=== PATIENT | male | born 1970 | race Caucasian/White ===

== ENCOUNTER 2021-05-12 11:08 | Inpatient (IN) | payer MEDICARE, MEDICAID ==
[~2021-05-12] VITALS: Ht 167.6 cm; Wt 71.6 kg
[~2021-05-12 11:08] MED LIST: ASPI-1265 PO; BENZ-16 PO; CARSR60C PO; CLON-529 PO; ESOM40CA PO; GABA-338 PO; INSU100V36 SQ; LANTUS SQ; LEVA15HF4 IH; LISI20TA28 PO; ROSU20TA2 PO; SYN0.1T PO
[2021-05-12 12:05] LABS: ALANINE AMINOTRANSFERASE 80 U/L (12-78); ALBUMIN 3.8 G/DL (3.4-5.0); ALKALINE PHOSPHATASE 137 IU/L (46-116); ANION GAP 13 (8-16); ASPARTATE AMINO TRANSFERASE 51 U/L (10-37); BILIRUBIN,TOTAL 0.4 MG/DL (0.1-1.0); BLOOD UREA NITROGEN 21 MG/DL (7-18); BUN/CREATININE RATIO 9.6 (5.4-32.0); CALCIUM 8.8 MG/DL (8.5-10.1); CHLORIDE 104 MMOL/L (99-107); CREATININE 2.18 MG/DL (0.60-1.10); GLUCOSE 248 MG/DL (70-104); POTASSIUM 4.1 MMOL/L (3.5-5.1); SODIUM 139 MMOL/L (135-145); TOTAL CARBON DIOXIDE 22.3 MMOL/L (24-32); TOTAL PROTEIN 7.5 G/DL (6.4-8.2); eGFR 32 ML/MIN
[2021-05-12 12:07] LABS: MAGNESIUM 2.2 MG/DL (1.5-2.4)
[2021-05-12 12:09] LABS: ACETAMINOPHEN < 2.0 UG/ML (10-30)
[2021-05-12 12:25] LABS: BASOPHILS % (AUTO) 0.7 % (0-1); EOSINOPHILS # (AUTO) 0.1 X10'3 (0-0.9); EOSINOPHILS % (AUTO) 2.3 % (0-6); HEMATOCRIT 46.5 % (42.0-52.0); HEMOGLOBIN 15.2 g/dl (14.0-17.9); LYMPHOCYTES # (AUTO) 1.2 X10'3 (1.1-4.8); LYMPHOCYTES % (AUTO) 19.6 % (21-51); MEAN CORPUSCULAR HEMOGLOBIN 27.6 PG (27.0-31.0); MEAN CORPUSCULAR HGB CONC 32.6 g/dL (33.0-36.5); MEAN CORPUSCULAR VOLUME 84.4 FL (78-98); MEAN PLATELET VOLUME 8.5 FL (7.4-10.4); MONOCYTES # (AUTO) 0.4 X10'3 (0-0.9); MONOCYTES % (AUTO) 6.1 % (2-12); NEUTROPHILS # (AUTO) 4.2 X10'3 (1.8-7.7); NEUTROPHILS % (AUTO) 71.3 % (42-75); PLATELET COUNT 278 X10'3 (140-440); RED CELL DISTRIBUTION WIDTH 14.6 % (11.5-14.5); WHITE BLOOD COUNT 5.9 X10'3 (4.5-11.0)
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
--- NOTE | 2021-05-12 14:43 | NUR ---
bs 77, pt given three apple juices. tolerating well.
--- NOTE | 2021-05-12 14:56 | NUR ---
pt continues to deny SI, but states he took insulin to overdose this morning. states he planned to go to sleep on his bed with his dog and not wake up, but someone called 911.
[2021-05-12 15:04] LABS: URINE AMPHETAMINE SCREEN NEGATIVE (Neg); URINE BARBITUATE SCREEN NEGATIVE (Neg); URINE BENZODIAZEPINES SCREEN NEGATIVE (Neg); URINE CANNABINOID SCREEN POSITIVE (Neg); URINE COCAINE SCREEN NEGATIVE (Neg); URINE METHADONE SCREEN NEGATIVE (Neg); URINE OPIATE SCREEN NEGATIVE (Neg); URINE PHENCYCLIDINE SCREEN NEGATIVE (Neg)
--- NOTE | 2021-05-12 16:51 | NUR ---
telephone report to ignacio gomes. pt ambulated to er bed 25.
--- NOTE | 2021-05-12 17:15 | NUR ---
PT. TRANSFERRED FROM MAIN ER TO OVERFLOW . PT. PLACED IN BED #25 . PT. PERSONAL BELONGING PLACED IN LOCKER. PT. PERSONAL MEDICATION SENT TO PHARMACY. MEDICATION RECONCIL. COMPLETED. PACKET FAXED TO [facility] FOR EVALUATION. PT. OREINTED TO THE UNIT. STAFF WILL CONTINUE TO MONITOR FOR SAFETY.
--- NOTE | 2021-05-12 17:15 | NUR ---
PT. TRANSFERRED FROM MAIN ER TO
[2021-05-12 17:33] LABS: CLARITY,URINE CLEAR (Clear); COLOR,URINE YELLOW (Yellow); GLUCOSE, URINE >=1000 mg/dl (Neg); KETONES,URINE NEGATIVE (Neg); LEUKOCYTE ESTERASE ,URINE NEGATIVE (Neg); NITRITES, URINE NEGATIVE (Neg); OCCULT BLOOD,URINE TRACE-LYSED (Neg); PH,URINE 5.5 (4.8-8.0); PROTEIN,URINE 30 mg/dl (Neg); UROBILINOGEN,URINE 0.2 E.U/dL (0.2-1.0)
[2021-05-12 17:38] LABS: UA COLLECTION TYPE CLN CATCH MIDSTREAM
[2021-05-12 17:42] LABS: RBC,URINE NONE SEEN /HPF (0-2); WBC,URINE 0-4 /HPF (0-4)
[2021-05-12 17:43] LABS: BACTERIA,URINE NONE SEEN /HPF (Neg); MUCUS STRANDS FEW /LPF (Neg); SPERM MODERATE /HPF (NEGATIVE); SQUAMOUS EPITHELIAL CELL,UR FEW /LPF (FEW)
--- NOTE | 2021-05-12 18:00 | NUR ---
[facility] CLINICIAN AT BEDSIDE TO EVALUATE PATIENT. PT. BECAME AGITATED WITH CLINICIAN. [facility] CLINICIAN ENDED THE EVALUATION. WILL TRY TO REEVALUATE IN THE MORNING.
[2021-05-12] MEDS ORDERED: GABA-530 PO (18:39)
[2021-05-12] MEDS ORDERED: INSU100I29 SQ (18:39)
[2021-05-12] MEDS ORDERED: CLON0.2T2 PO (18:39)
[2021-05-12] MEDS ORDERED: ALLO100T PO (18:39)
[2021-05-12] MEDS ORDERED: NOVLG SQ (18:39)
[2021-05-12] MEDS ORDERED: CARV6.2553 PO (18:39)
[2021-05-12] MEDS ORDERED: LOSA25TA41 PO (18:39)
[2021-05-12] MEDS ORDERED: BUSP7.5T5 PO (18:39)
[2021-05-12] MEDS ORDERED: albuterol 2.5 MG/3 ML nebule NEB PRN (19:50)
--- NOTE | 2021-05-12 20:10 | NUR ---
RECEIVED PATIENT ON THE UNIT IN NO OBVIOUS DISTRESS. NO PHYSICAL COMPLAINT MADE. PATIENT IS ABIT AGITATED AND ANXIOUS, HE WAS COAXED SAME WAS SUCCESSFUL. PATIENT RATES ANXIETY /10 AND DEPRESSION /10. PATIENT DENIES HAVING SUICIDAL IDEATION AT THIS TIME BUT SAY TODAY HE WAS JUST FRUSTRATED.
[2021-05-12] MEDS: gabapentin 100mg capsule PO SCH (20:36)
[2021-05-12] MEDS: cloNIDine 0.1 mg tablet PO SCH (20:37)
[2021-05-12] MEDS: carvedilol 6.25mg tablet PO SCH (20:37)
[2021-05-12] MEDS: busPIRone 15mg tablet PO SCH (20:37)
[2021-05-12] MEDS ORDERED: glucagon, human recombinant 1mg kit SUBCUT PRN (20:55)
[2021-05-12] MEDS ORDERED: DEXTROSE 15 GM of carb/4 tabs (each vial/BOTTLE has 4 tablets) PO PRN ×2 (20:55)
[2021-05-12] MEDS ORDERED: dextrose 50%-water 50ml dispensing syringe IV PRN ×2 (20:55)
[2021-05-12] MEDS ORDERED: INSULIN ASPART SQ SCH (21:00)
[2021-05-13] MEDS ORDERED: acetaminophen 325mg tablet PO STA (00:45)
--- NOTE | 2021-05-13 01:36 | NUR ---
Patient complain of having a headache, he rate the pain as 4/10. At 0157 tylenol 650 mg PO given
--- NOTE | 2021-05-13 05:09 | NUR ---
Patient asleep in no obvious distress. observation ongoing
--- NOTE | 2021-05-13 06:00 | NUR ---
PT. CARE ASSUMED FROM OFF GOING NURSE OLGA CASTELLANOS. PT. VISIBLE ON THE UNIT RESTING QUIETLY WITH EYES CLOSED. NO SIGNS OF DISTRESS NOTED. STAFF WILL CONTINUE TO MONITOR.
[2021-05-13] MEDS: cloNIDine 0.1 mg tablet PO SCH ×3 (08:34→20:39)
[2021-05-13] MEDS: levoTHYROXINE 100mcg tablet PO SCH (08:34)
[2021-05-13] MEDS: pantoprazole 40mg Tablet.DR PO SCH (08:34)
[2021-05-13] MEDS: atorvastatin 20mg tablet PO SCH (08:34)
[2021-05-13] MEDS: gabapentin 100mg capsule PO SCH ×3 (08:34→20:39)
[2021-05-13] MEDS: losartan 25mg tablet PO SCH (08:35)
[2021-05-13] MEDS: carvedilol 6.25mg tablet PO SCH ×2 (08:35→20:39)
[2021-05-13] MEDS: busPIRone 15mg tablet PO SCH ×2 (08:35→20:40)
[2021-05-13] MEDS: diltiazem SR 60mg capsule (twice daily) PO SCH (08:36)
[2021-05-13] MEDS: insulin glargine (Lantus) pen - multi-dose SQ SCH (08:53)
[2021-05-13] MEDS: insulin Lispro (HumaLOG) vial - multi-dose SQ SCH ×2 (08:55→13:48)
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
[2021-05-13] MEDS ORDERED: LORazepam 1 MG tablet PO ONE (12:05)
--- NOTE | 2021-05-13 12:40 | NUR ---
PT. RELEASED FROM RESTRAINTS. PT. PRESENTS CALM AND COOPERATIVE AND VERY REMOARSEFUL FOR HIS BEHAVIOR. PT. SITTING ON THE EDGE OF BED EATING. DENIES ANY OTHER COMPLAINTS AT THIS TIME. STAFF WILL CONTINUE TO MONITOR FOR ANY CHANGES IN BX.
--- NOTE | 2021-05-13 14:01 | NUR ---
PT IS WALKING AROUND UNIT WITH HIS VISITORS. CALM AND COOPERATIVE.
--- NOTE | 2021-05-13 17:22 | NUR ---
LYING IN BED RESTING WITH EYES CLOSED. NO DISTRESS NOTED.
--- NOTE | 2021-05-13 19:16 | NUR ---
PATIENT RECEIVED ON THE UNIT IN NO OBVIOUS DISTRESS. PATIENT VOICED COMPLAINT OF HAVING PAIN TO HIS HIP, HE RATE THE PAIN A 8/10. PATIENT DENIES HAVING ANY SUICIDAL IDEATION AT THIS TIME.
[2021-05-13] MEDS ORDERED: docusate sod 100mg capsule PO STA (19:26)
--- NOTE | 2021-05-14 02:52 | NUR ---
PATIENT ASLEEP IN NO OBVIOUS DISTRESS. OBSERVATION ONGOING
--- NOTE | 2021-05-14 06:00 | NUR ---
ASSUMED CARE FROM OFF GOING NURSE OLGA CASTELLANOS. PT.RESTING QUIETLY WITH EYES CLOSED. STAFF WILL CONTINUE TO MONITOR FOR SAFETY.
--- NOTE | 2021-05-14 06:02 | NUR ---
PATIENT ASLEEP BUT EASILY AROUSE. OBSERVATION ONGOING.
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
[2021-05-14] MEDS: busPIRone 15mg tablet PO SCH ×2 (08:51→20:46)
[2021-05-14] MEDS: atorvastatin 20mg tablet PO SCH (08:51)
[2021-05-14] MEDS: levoTHYROXINE 100mcg tablet PO SCH (08:52)
[2021-05-14] MEDS: gabapentin 100mg capsule PO SCH (08:52)
[2021-05-14] MEDS: pantoprazole 40mg Tablet.DR PO SCH (08:52)
[2021-05-14] MEDS: insulin glargine (Lantus) pen - multi-dose SQ SCH (08:56)
[2021-05-14] MEDS: insulin Lispro (HumaLOG) vial - multi-dose SQ SCH ×3 (10:05→19:10)
[2021-05-14] MEDS: carvedilol 6.25mg tablet PO SCH ×2 (10:42→20:00)
[2021-05-14] MEDS: cloNIDine 0.1 mg tablet PO SCH ×3 (10:42→20:45)
[2021-05-14] MEDS: diltiazem SR 60mg capsule (twice daily) PO SCH (10:42)
[2021-05-14] MEDS: losartan 25mg tablet PO SCH (10:43)
[2021-05-14] MEDS ORDERED: acetaminophen 325mg tablet PO ONE (11:00)
--- NOTE | 2021-05-14 11:17 | NUR ---
PT. MEDICATED WITH TYLENOL 650 MG PO FOR C/O LEG PAIN.
--- NOTE | 2021-05-14 11:45 | NUR ---
PT. TRANSFRRED TO [facility] VIA WHEELCHAIR. 5150 AND PERSONAL BELONGING GIVEN TO TRANSPORT. SECURITY CALLED FOR ESCORT OFF UNIT.
[2021-05-14] MEDS ORDERED: loperamide 2mg capsule PO PRN (12:10)
[2021-05-14] MEDS ORDERED: acetaminophen 325mg tablet PO PRN ×2 (12:10)
[2021-05-14] MEDS ORDERED: mag hydrox/Alum hydrox/simeth 30ml oral suspension PO PRN (12:10)
--- NOTE | 2021-05-14 12:13 | NUR ---
Admission note: Pt admitted to [facility] today on 5150 for DTS . Pt states he took 55 units of insulin to end his life and would attempt to end his life and would attempt to end his life again. Pt has had issues with family and wanted to "End it". Pt has history of depression, anxiety, renal disease, DM I, HTN.
[2021-05-14 13:25] VITALS: BP 171/75
[2021-05-14] MEDS: nicotine 21mg patch - 24 hr TD SCH (13:32)
[2021-05-14] MEDS: gabapentin 300mg capsule PO SCH ×2 (13:33→20:46)
[2021-05-14] MEDS: NICOTINE POLACRILEX 2 MG LOZENGE BC PRN ×2 (17:05→20:47)
[2021-05-14 20:00] VITALS: BP 115/58
--- NOTE | 2021-05-14 21:00 | NUR ---
PATIENTS COREG WAS HELD HIS PULSE RATE WAS 55.
--- NOTE | 2021-05-14 23:43 | NUR ---
RN PROGRESS NOTE: LEGAL HOLD: 5150 for DTS RECEIVED REPORT FROM: Alphonso Hodges RN with use of SBAR. REASON FOR ADMIT: Pt admitted to [facility] today on 5150 for DTS . Pt states he took 55 units of insulin to end his life and would attempt to end his life and would attempt to end his life again. Pt has had issues with family and wanted to "End it". Pt has history of depression, anxiety, renal disease, DM I, HTN. THIS SHIFT: Client socializes with others. He is oriented, thoughts are linear. Denies SI/HI and A/VH at this time. Client talks about discharge and states a plan to move to [place] to be with other family members. Medication compliant. Mood is upbeat. Full affect. Agreeable and cooperative with physical, meds, and BS assessment. BS was 169 at 20:30. Given 11 units of Humolog. Client discussed childhood diagnosis of Type I diabetes.
--- NOTE | 2021-05-15 04:07 | NUR ---
PATIENT AWOKE, DIAPHORETIC, STATED HE FELT HIS BLOOD SUGAR WAS LOW. GLUCOSE CHECK WAS 54. PATIENT WAS GIVEN 6 OUNCES OF ORANGE JUICE. PATIENT CONSUMED WITHOUT PROBLEM. PATIENT WAS THEN GIVEN A COMPLEX CARB TURKEY SANDWICH. PATIENTS BLOOD SUGAR WILL BE RE-EVALUATED IN AROUND 20 MINUTES. PATIENT HAD GOOD ORIENTATION AND A GAG REFLEX WHEN THE BLOOD SUGAR WAS 54.
[2021-05-15] MEDS: NICOTINE POLACRILEX 2 MG LOZENGE BC PRN ×3 (07:23→21:11)
[2021-05-15] MEDS: levoTHYROXINE 100mcg tablet PO SCH (07:37)
[2021-05-15] MEDS: pantoprazole 40mg Tablet.DR PO SCH (07:37)
[2021-05-15 07:38] LABS: CHOL/HDL RATIO 3.8 (0.00-4.99); CHOLESTEROL 163 MG/DL (0-200); HDL CHOLESTEROL 43 MG/DL (35-60); LDL CHOLESTEROL 78 MG/DL (50-100); TRIGLYCERIDES 299 MG/DL (20-135)
[2021-05-15] MEDS: busPIRone 15mg tablet PO SCH ×2 (07:38→20:59)
[2021-05-15] MEDS: cloNIDine 0.1 mg tablet PO SCH ×3 (07:38→20:57)
[2021-05-15] MEDS: gabapentin 300mg capsule PO SCH ×3 (07:39→20:56)
[2021-05-15] MEDS: atorvastatin 20mg tablet PO SCH (07:39)
[2021-05-15] MEDS: carvedilol 6.25mg tablet PO SCH ×2 (07:39→20:56)
[2021-05-15] MEDS: diltiazem SR 60mg capsule (twice daily) PO SCH (07:40)
[2021-05-15] MEDS: losartan 25mg tablet PO SCH (07:40)
[2021-05-15] MEDS: nicotine 21mg patch - 24 hr TD SCH (07:47)
[2021-05-15] MEDS: insulin glargine (Lantus) pen - multi-dose SQ SCH (07:49)
[2021-05-15 07:52] LABS: HEMOGLOBIN A1C 8.8 % (4.5-6.2)
[2021-05-15 08:33] VITALS: BP 183/87
[2021-05-15] MEDS: insulin Lispro (HumaLOG) vial - multi-dose SQ SCH ×3 (09:23→18:23)
[2021-05-15] MEDS: magnesium hydroxide 30ml (MOM) UD suspension PO PRN (14:57)
[2021-05-15] MEDS ORDERED: traZODone 50mg tablet PO PRN (16:20)
[2021-05-15] MEDS ORDERED: hydrOXYzine 25 MG tablet PO PRN (16:20)
--- NOTE | 2021-05-15 17:33 | NUR ---
RN PROGRESS NOTE: LEGAL HOLD: 5150 for DTS RECEIVED REPORT FROM: Alphonso Hodges RN with use of SBAR. REASON FOR ADMIT: Pt admitted to [facility] today on 5150 for DTS . Pt states he took 55 units of insulin to end his life and would attempt to end his life and would attempt to end his life again. Pt has had issues with family and wanted to "End it". Pt has history of depression, anxiety, renal disease, DM I, HTN. THIS SHIFT: Patient is sleeping at change of shift and awake in his bed before breakfast. Patient is pleasant. Patient's morning BG was 354. Patient was given the appropriate insulin coverage after eating breakfast. Patient denies suicidal/homicidal ideation at this time. Patient states he is going to live in a trailer near his sister in [place] and he is happy about that. Patient will leave on Monday per patient. Patient came to RN in the late afternoon and stated he felt shaky. RN took his BG and it was at 49. RN gave patient a protein drink and an apple sauce and retook his BG 40 minutes later. His glucose was 145. RN to move patient's Level down to a 2. Mariya Werner RN aware. Patient sits in the group room a small amount of time and is usually in his room sleeping or relaxing. S/I, H/I: Denies A/VH: Denies. Sleep: Napped several times today ADL's: Independent Group attendance: No Were Meds taken: Yes Any med S/E: Denies. None observed. Mental Status Exam Appearance: Short, overweight middle aged gentleman wearing green scrubs. Patient appears well groomed. Eye contact: Good, WNL Behavior: Cooperative, isolative Speech: Clear, normal rate and rhythm Mood: Calm Affect: Flat Thought process: Linear Thought Content: Meeting basic needs. Cognition: A&O X4 Insight: Fair Judgment: Fair Interventions PRN's used: None Therapeutic interventions: Provided 1:1 assessment with therapeutic communication and active listening, provided clear and simple instructions, encouraged participation on the unit and independent completion of ADLs, medication administration/education/monitoring, and maintained Q 15 min safety checks. Restraints/seclusion/emergency medication: N/A Justification of Continued Inpatient Treatment: Patient requires medication stabilization and a safe and supportive environment.
--- NOTE | 2021-05-15 18:27 | NUR ---
RN did not want to give the 6 units of insulin because patient dropped in late afternoon and in the middle of the night. Patient wanted half so he could have a snack tonight. RN agreed and gave patient 3 units instead of 6. Patient moved down to a level 2.
[2021-05-15 20:00] VITALS: BP 162/70
--- NOTE | 2021-05-16 02:05 | NUR ---
RN PROGRESS NOTE: LEGAL HOLD: 5150 for DTS RECEIVED REPORT FROM: EMANUEL Werner with use of SBAR. REASON FOR ADMIT: Pt admitted to [facility] today on 5150 for DTS . Pt states he took 55 units of insulin to end his life and would attempt to end his life and would attempt to end his life again. Pt has had issues with family and wanted to "End it". Pt has history of depression, anxiety, renal disease, DM I, HTN. THIS SHIFT: Patient came out of room and introduced himself at shift change. Patient was pleasant and cordial. Day shift nurse was explaining patients BS as she had already given the patient 3units of coverage for his meal. The patient was in agreement with this as his BS had a history of dropping to low levels in the evening. BS at 2100 was 234, referred to Nighttime tool and no additional Lispro was needed. Patient had snack took medications at evening med pass and then went to bed. 2100 BS 234, Nighttime tool insulin amount = 0 S/I, H/I: Denies A/VH: Denies. Sleep: See sleep hours ADL's: Independent Group attendance: No group in the evening Were Meds taken: Yes Any med S/E: Denies. None observed. Mental Status Exam Appearance: Short, overweight middle aged gentleman wearing green scrubs. Patient appears well groomed. Eye contact: Good, WNL Behavior: Cooperative, isolative Speech: Clear, normal rate and rhythm Mood: Calm Affect: Flat Thought process: Linear Thought Content: Meeting basic needs. Cognition: A&O X4 Insight: Fair Judgment: Fair Interventions PRN's used: None Therapeutic interventions: Provided 1:1 assessment with therapeutic communication and active listening, provided clear and simple instructions, encouraged participation on the unit and independent completion of ADLs, medication administration/education/monitoring, and maintained Q 15 min safety checks. Restraints/seclusion/emergency medication: N/A Justification of Continued Inpatient Treatment: Patient requires medication stabilization and a safe and supportive environment.
[2021-05-16] MEDS: NICOTINE POLACRILEX 2 MG LOZENGE BC PRN ×3 (06:59→18:17)
--- NOTE | 2021-05-16 07:33 | NUR ---
Diabetes consult: Noted pt w/ hx of T1DM, A1c 8.8. Pt admitted w/p suicide attempt via insulin injections per EMR. DM ed not appropriate at this time. Addendum: 05/16/21 at [address] Amended: Links added.
[2021-05-16 07:40] VITALS: BP 174/83
[2021-05-16 07:54] LABS: ALANINE AMINOTRANSFERASE 66 U/L (12-78); ALBUMIN 3.9 G/DL (3.4-5.0); ALKALINE PHOSPHATASE 131 IU/L (46-116); ANION GAP 12 (8-16); ASPARTATE AMINO TRANSFERASE 29 U/L (10-37); BILIRUBIN,TOTAL 0.4 MG/DL (0.1-1.0); BLOOD UREA NITROGEN 34 MG/DL (7-18); BUN/CREATININE RATIO 16.4 (5.4-32.0); CALCIUM 9.1 MG/DL (8.5-10.1); CHLORIDE 104 MMOL/L (99-107); CREATININE 2.07 MG/DL (0.60-1.10); GLUCOSE 181 MG/DL (70-104); POTASSIUM 4.6 MMOL/L (3.5-5.1); SODIUM 142 MMOL/L (135-145); TOTAL CARBON DIOXIDE 25.9 MMOL/L (24-32); TOTAL PROTEIN 7.7 G/DL (6.4-8.2); eGFR 34 ML/MIN
[2021-05-16] MEDS: insulin glargine (Lantus) pen - multi-dose SQ SCH (08:24)
[2021-05-16] MEDS: insulin Lispro (HumaLOG) vial - multi-dose SQ SCH ×3 (08:25→18:12)
[2021-05-16] MEDS: cloNIDine 0.1 mg tablet PO SCH ×3 (08:29→21:07)
[2021-05-16] MEDS: diltiazem CD 180mg cap (once-daily) PO SCH (08:30)
[2021-05-16] MEDS: busPIRone 15mg tablet PO SCH ×2 (08:31→21:08)
[2021-05-16] MEDS: carvedilol 6.25mg tablet PO SCH ×2 (08:31→21:08)
[2021-05-16] MEDS: atorvastatin 20mg tablet PO SCH (08:31)
[2021-05-16] MEDS: pantoprazole 40mg Tablet.DR PO SCH (08:32)
[2021-05-16] MEDS: levoTHYROXINE 100mcg tablet PO SCH (08:32)
[2021-05-16] MEDS: gabapentin 300mg capsule PO SCH ×3 (08:32→21:08)
[2021-05-16] MEDS: losartan 25mg tablet PO SCH (08:32)
[2021-05-16] MEDS: nicotine 21mg patch - 24 hr TD SCH (08:33)
[2021-05-16 09:00] VITALS: BP 152/83
[2021-05-16] MEDS: magnesium hydroxide 30ml (MOM) UD suspension PO PRN (09:36)
[2021-05-16 13:29] VITALS: BP 137/76
--- NOTE | 2021-05-16 17:46 | NUR ---
RN PROGRESS NOTE: Beka LEGAL HOLD: 5150 for DTS RECEIVED REPORT FROM: Elana Posey RN with use of SBAR. REASON FOR ADMIT: Pt admitted to [facility] today on 5150 for DTS . Pt states he took 55 units of insulin to end his life and would attempt to end his life and would attempt to end his life again. Pt has had issues with family and wanted to "End it". Pt has history of depression, anxiety, renal disease, DM I, HTN. WHAT HAPPENED ON THIS SHIFT: Patient observed walking around the unit at shift change drinking a cup of coffee. He approached this bond underwriter shortly after asking for a PRN Nicotine lozenge. He presents as calm and pleasant this morning. Patient observed having an appropriate conversation with another peer on the unit. He was receptive to scheduled medication and 1:1 assessment. Patient had a blood sugar reading of 215 mg/dL before breakfast. He joined for breakfast in the group room, noted socializing appropriately with peers. Patient was given 9 units of PRN Humalog after breakfast, per diabetic protocol. Patient endorsed that he was kicked out of his Aunts house and plans to move to [place] to be with his sister and family. Patient endorsed that he plans to live in a trailer owned by a family friend and to start fresh in [place] with his dog and his family. He presents as calm, pleasant, and cooperative with care. Patient denies SI/HI, AH or VH. Does not appear to be responding to internal stimuli. Patient had a blood sugar reading of 242 mg/dL before lunch. He was given 13 units of PRN Humalog after lunch, per diabetic protocol. Patient was observed sleeping and isolating to his room the majority of the day. He was active on the unit during snack and meal times, noted joining in the group room with peers. Patient noted to have a blood sugar reading of 149 mg/dL before dinner time. S/I, H/I: Denies A/VH: Denies. Does not appear to be responding to IS. Sleep: Pt slept 5.75 hours last night per NOC shift. Napped intermittently on this shift. ADL's: Independent Group attendance: No group provided Were Meds taken: Yes Any med S/E: Denies. None observed. Mental Status Exam Appearance: Short, overweight middle aged gentleman wearing green scrubs. Patient appears well groomed. Eye contact: Good, WNL Behavior: Cooperative, isolative Speech: Clear, normal rate and rhythm Mood: Calm Affect: Flat Thought process: Linear Thought Content: Meeting basic needs. Making plans for discharge. Wants to move to [place]. Cognition: A&O X4 Insight: Fair Judgment: Fair Interventions PRN's used: PRN Humalog, PRN Milk of Magnesia, PRN Nicotine Lozenge Therapeutic interventions: Provided 1:1 assessment with therapeutic communication and active listening, provided clear and simple instructions, encouraged participation on the unit and independent completion of ADLs, medication administration/education/monitoring, and maintained Q 15 min safety checks. Restraints/seclusion/emergency medication: N/A Justification of Continued Inpatient Treatment: Patient requires medication stabilization and a safe and supportive environment.
[2021-05-16 20:00] VITALS: BP 147/75
--- NOTE | 2021-05-17 01:57 | NUR ---
RN PROGRESS NOTE: Beka LEGAL HOLD: 5150 for DTS RECEIVED REPORT FROM: EMANUEL Werner with use of SBAR. REASON FOR ADMIT: Pt admitted to [facility] today on 5150 for DTS . Pt states he took 55 units of insulin to end his life and would attempt to end his life and would attempt to end his life again. Pt has had issues with family and wanted to "End it". Pt has history of depression, anxiety, renal disease, DM I, HTN. WHAT HAPPENED ON THIS SHIFT: Patient in rec room socializing at shift change. pt is pleasant and kind. The Patient laid down after watching TV and took a nap then walked around the unit talking to cohorts. Pt BS was 147 at 2100, Nighttime tool=0. The patient had nothing new to report and is waiting anxiously to go home. The patient ate a snack at snack time and took medications w/o complaint and went to bed shortly after. Patient reminded before bedtime that he has any s/sx of hypoglycemia to notify me immediately due to earlier reports of low BS. S/I, H/I: Denies A/VH: Denies Sleep: See sleep hours ADL's: Independent Group attendance: No group in the evening Were Meds taken: Yes Any med S/E: Denies. None observed. Mental Status Exam Appearance: Short, overweight middle aged gentleman wearing green scrubs. Patient appears well groomed. Eye contact: Good, WNL Behavior: Cooperative, isolative Speech: Clear, normal rate and rhythm Mood: Calm Affect: Flat Thought process: Linear Thought Content: Meeting basic needs. Cognition: A&O X4 Insight: Fair Judgment: Fair Interventions PRN's used: trazodone 50mg Therapeutic interventions: Provided 1:1 assessment with therapeutic communication and active listening, provided clear and simple instructions, encouraged participation on the unit and independent completion of ADLs, medication administration/education/monitoring, and maintained Q 15 min safety checks. Restraints/seclusion/emergency medication: N/A Justification of Continued Inpatient Treatment: Patient requires medication stabilization and a safe and supportive environment.
[2021-05-17] MEDS: NICOTINE POLACRILEX 2 MG LOZENGE BC PRN (06:03)
[2021-05-17] MEDS: insulin glargine (Lantus) pen - multi-dose SQ SCH (08:14)
[2021-05-17] MEDS: insulin Lispro (HumaLOG) vial - multi-dose SQ SCH (08:16)
[2021-05-17] MEDS: pantoprazole 40mg Tablet.DR PO SCH (08:18)
[2021-05-17] MEDS: atorvastatin 20mg tablet PO SCH (08:18)
[2021-05-17] MEDS: levoTHYROXINE 100mcg tablet PO SCH (08:18)
[2021-05-17] MEDS: diltiazem CD 180mg cap (once-daily) PO SCH (08:18)
[2021-05-17] MEDS: gabapentin 300mg capsule PO SCH (08:19)
[2021-05-17] MEDS: carvedilol 6.25mg tablet PO SCH (08:19)
[2021-05-17] MEDS: losartan 25mg tablet PO SCH (08:19)
[2021-05-17] MEDS: cloNIDine 0.1 mg tablet PO SCH (08:19)
--- NOTE | 2021-05-17 08:19 | NUR ---
CM-Chart Review Presenting Issues: Pt was 5150 due to concerns associated w/DTS after he attempted to OD on Insulin. Per chart review, attending physician is recommending d/c pending dcp. Interventions: Per chart review, pt plans to move to [place] and live w/sister there. Plan: Clinician will meet w/pt and engage him in dcp activities and obtain consent to contact family and engage them in dcp activities also. Pre-DCP-pt to d/c to friend's home and prepare to move to [place], will need 30-days meds. Yaneth Eckert LCSW Addendum: 05/17/21 at 0827 by Yaneth Eckert Amended: Links added.
[2021-05-17] MEDS: busPIRone 15mg tablet PO SCH (08:20)
[2021-05-17] MEDS: nicotine 21mg patch - 24 hr TD SCH (08:22)
--- NOTE | 2021-05-17 09:15 | NUR ---
DCP Presenting Issues: Pt's 5150 expires this AM pending dcp. Interventions: Clinician met w/pt & engaged him dcp activities. Per session pt denies SI/HI/AH/VH/TH, no delusional statements noted. Clinician engaged pt in discussion of precipitating events that contributed to this hospitalization. 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 Her son & his had no place to live so they were staying on her couch, she wanted me out so her son & his can have the guest bedroom. I panicked because I had nowhere else to go." When asked what's changed since his admission, pt reports that his family & friend are providing support. Pt states, "my mom & sister will help me get to [place] where I will rent a trailer from her friend and assist my sister managing friend's properties there. My friend & his mother are allowing me to stay w/them [place] [facility] I can pack up to move this way I won't have to go back to my aunt's house except to get my belongings and my friend will be with me then." Pt contacted his friend Lucas [place] [facility] and allowed clinician to talk with Lucas, per discussion, Lucas confirmed that pt will be staying with him & his mother until his flight to [place]. Lucas's mother will be picking pt up at d/c. Clinician had t/c with Terrie/sister- [phone]- per t/c she confirmed plan of pt moving to [place] & staying in a trailer owned by sister's friend. Pt will assist his sister w/the management of her friend's properties. Attending physician notified of dcp. Plan: D/c pending physician dirk. Addendum: 05/17/21 at 0957 by Yaneth CHASE Amended: Links added.
[2021-05-17 09:19] VITALS: BP 130/74
[2021-05-17] MEDS ORDERED: NICO-687 TD (11:26)
[2021-05-17] MEDS ORDERED: BUSP7.5T3 PO (11:26)
--- NOTE | 2021-05-17 12:10 | NUR ---
Patient discharged and escorted from unit at approximately 1146. Discharge instructions reviewed and verbalized understanding. Patients belongings inventoried and returned to him. He had belongings in the ER safe which were also picked up prior to discharge. Patient is A&O x4, calm and cooperative. Patient is ambulatory with a steady gait. No s/s of distress. He was escorted out by staff and left the hospital without incident.
== END 2021-05-17 11:45 | disposition home or self-care (01) | DRG 881 ==
LOC: ER 11:09 → ADULT MH 05-14 10:10
PROVIDERS: ADMIT Psychiatry & Neurology Psychiatry; ATTEND Psychiatry & Neurology Psychiatry
DX: F43.21 Adjustment disorder with depressed mood (principal); N18.30 Chronic kidney disease, stage 3 unspecified; E10.65 Type 1 diabetes mellitus with hyperglycemia; E03.9 Hypothyroidism, unspecified; J44.9 Chronic obstructive pulmonary disease, unspecified; E10.42 Type 1 diabetes mellitus with diabetic polyneuropathy; F12.90 Cannabis use, unspecified, uncomplicated; E78.00 Pure hypercholesterolemia, unspecified; E78.5 Hyperlipidemia, unspecified; Z20.822 Contact with and (suspected) exposure to COVID-19; T38.3X2A Poisoning by insulin and oral hypoglycemic [antidiabetic] drugs, intentional self-harm, initial encounter; I12.9 Hypertensive chronic kidney disease with stage 1 through stage 4 chronic kidney disease, or unspecified chronic kidney disease; F17.210 Nicotine dependence, cigarettes, uncomplicated; K21.9 Gastro-esophageal reflux disease without esophagitis; Z78.1 Physical restraint status; Z79.899 Other long term (current) drug therapy; Z80.8 Family history of malignant neoplasm of other organs or systems; Z82.3 Family history of stroke; Z82.49 Family history of ischemic heart disease and other diseases of the circulatory system; Z56.0 Unemployment, unspecified; Z59.00 Homelessness unspecified; Z71.6 Tobacco abuse counseling; Y92.89 Other specified places as the place of occurrence of the external cause
CPT/HCPCS: 36415; 80053; 80061; 80305; 80329; 81001; 82948; 83036; 83735; 84443; 85025; 87081; 87635; 99285; C9803; J1815